=== PATIENT | male | born 1955 | race Caucasian/White ===

== ENCOUNTER 2017-01-07 11:19 | Inpatient (IN) | payer OTHER ==
[~2017-01-07] VITALS: Ht 175.3 cm; Wt 94.3 kg
[2017-01-07 13:44] LABS: EOSINOPHIL (%) 0.3 % (0-5); HEMATOCRIT 43.2 % (38.0-50.0); IMMATURE GRANULOCYTE (%) 0.3 % (0.0-0.7); IMMATURE GRANULOCYTE COUNT 0.2 K/uL; LYMPHOCYTE COUNT 0.4 K/uL (1.0-2.8); MCH 30.5 PG (29.0-34.0); MCHC 32.2 G/DL (30.0-36.0); MCV 94.9 FL (86-99); MEAN PLAT.VOLUME 10.4 uM^3 (9.0-12.4); MONOCYTE (%) 11.3 % (3-12); MONOCYTE COUNT 0.8 K/uL (0-0.8); NEUTROPHIL (%) 82.4 % (45-76); NEUTROPHIL COUNT 6.1 K/uL (1.8-6.4); PLATELET COUNT 149 K/uL (156-360); RBC DIS.WIDTH-CV 13.1 % (11.8-14.6); RBC DIS.WIDTH-SD 43.7 % (39-53); RED BLOOD COUNT 4.55 M/uL (4.00-5.50); WHITE BLOOD COUNT 7.3 K/uL (4.1-10.2)
[2017-01-07 13:53] LABS: CHLORIDE 99 mEq/L (99-109); POTASSIUM 5.9 mEq/L (3.7-5.4); SODIUM 138 mEq/L (136-147)
[2017-01-07 13:55] LABS: GLUCOSE 296 mg/dL (70-99)
[2017-01-07 13:56] LABS: ANION GAP 11 MEQ/L (2-14)
[2017-01-07 13:57] LABS: TOTAL BILIRUBIN 0.9 mg/dL (0.0-1.0)
[2017-01-07 13:58] LABS: SERUM ETHYL ALCOHOL < 10 mg/dL
[2017-01-07 13:59] LABS: ALKALINE PHOSPHATASE 109 IU/L (3-129); GFR ESTIMATE (CALCULATED) 47 mL/min/
[2017-01-07 14:01] LABS: UREA NITROGEN (BUN) 20 mg/dL (9-23)
[2017-01-07 14:02] LABS: SALICYLATE < 5.0 MG/DL (15-30)
[2017-01-07 17:19] LABS: ADD MEDTOX COMMENT Y; AMPHETAMINE NEGATIVE (500 ng/mL); BARBITURATES NEGATIVE (200 ng/mL); BENZODIAZEPINES PRESUMPTIVE POSITIVE (150 ng/mL); COCAINE NEGATIVE (150 ng/mL); INTERNAL CONTROLS VALID? YES; METHADONE NEGATIVE (200 ng/mL); METHAMPHETAMINE NEGATIVE (500 ng/mL); OPIATES (MORPHINE) NEGATIVE (100 ng/mL); OXYCODONE PRESUMPTIVE POSITIVE (100 ng/mL); PHENCYCLIDINE NEGATIVE (25 ng/mL); PROPOXYPHENE NEGATIVE (300 ng/mL); THC CANNABINOIDS NEGATIVE (50 ng/mL); TRICYCLIC ANTIDEPRESSANTS PRESUMPTIVE POSITIVE (300 ng/mL)
[2017-01-07 17:54] LABS: CHLORIDE 99 mEq/L (99-109)
[2017-01-07 17:55] LABS: POTASSIUM 5.1 mEq/L (3.7-5.4); SODIUM 140 mEq/L (136-147)
[2017-01-07 17:56] LABS: GLUCOSE 295 mg/dL (70-99)
[2017-01-07 17:58] LABS: ANION GAP 12 MEQ/L (2-14)
[2017-01-07 18:00] LABS: GFR ESTIMATE (CALCULATED) 47 mL/min/
[2017-01-07 18:01] LABS: UREA NITROGEN (BUN) 22 mg/dL (9-23)
[2017-01-07 18:03] LABS: TROP-I INTERPRETATION NEGATIVE
[2017-01-07 18:07] LABS: BENZODIAZEPINES, URINE SCREEN POSITIVE (200 ng/mL)
[2017-01-07 19:00] LABS: BASE EXCESS 1.2 mEq/L (-3 to +3); CARBOXY HGB 4.1 % (0-5); COMMENTS - BLOOD GASES C+A+; METHEMOGLOBIN 1.1 % (0-1.5); PCO2 74 mm Hg (35-45); PO2 101 mm Hg (80-100); SITE RR
[2017-01-07 19:01] LABS: DEVICE NEBULIZER; O2 FLOW 6 L/MIN; TOTAL RESP RATE 16 resp/min; pH 7.23 (7.35-7.45)
[2017-01-07 20:26] LABS: BASE EXCESS -1.4 mEq/L (-3 to +3); BICARBONATE 26.9 mEq/L (22-26); CARBOXY HGB 3.9 % (0-5); METHEMOGLOBIN 0.9 % (0-1.5); PO2 85 mm Hg (80-100)
[2017-01-07 20:29] LABS: COMMENTS - BLOOD GASES C+A+; DEVICE NIV; FI02 30 %; MODE SPONT; PCO2 60 mm Hg (35-45); SITE RR
[2017-01-07 20:30] LABS: PEEP 5 CM/H20; PRES. SUPPORT 12 CM/H2O; TOTAL RESP RATE 22 resp/min
[2017-01-07 20:31] LABS: pH 7.26 (7.35-7.45)
[2017-01-07 21:18] LABS: POINT-OF-CARE METER ID UU13113702
[2017-01-07 22:03] LABS: BASE EXCESS -2.1 mEq/L (-3 to +3); BICARBONATE 26.3 mEq/L (22-26); CARBOXY HGB 3.5 % (0-5); PCO2 60 mm Hg (35-45); PO2 71 mm Hg (80-100)
[2017-01-07 22:04] LABS: COMMENTS - BLOOD GASES A+C+; DEVICE 840 NIV MASK VENT; FI02 30 %; MECHANICAL RATE 10 resp/min; MODE SIMV; PEEP 5 CM/H20; PRES. SUPPORT 16 CM/H2O; SITE RR; TIDAL VOLUME 500 ML; TOTAL RESP RATE 28 resp/min
[2017-01-07 22:05] LABS: pH 7.25 (7.35-7.45)
[2017-01-08] VITALS (20 sets, daily range): BP systolic 103–141; BP diastolic 28–79
[2017-01-08] MEDS ORDERED: ALPRAZOLAM1 MG PO (00:46)
[2017-01-08] MEDS ORDERED: OXYCODONE HCL10 MG PO (00:47)
[2017-01-08] MEDS ORDERED: RELAFEN750 MG PO (00:49)
[2017-01-08] MEDS ORDERED: OMEPRAZOLE40 M1 PO (00:50)
[2017-01-08] MEDS ORDERED: METFORMIN HCL500 M4 PO (00:51)
[2017-01-08] MEDS ORDERED: PROAIR HFA8.5 GM IH (00:52)
[2017-01-08] MEDS ORDERED: LISINOPRIL-HCT1 EACH PO (00:53)
[2017-01-08 02:24] LABS: METH RESISTANT S AUREUS PCR NEGATIVE (NEGATIVE)
[2017-01-08 02:25] LABS: PROBE CHECK PASS; SPECIMEN PROCESSING CONTROL PASS
[2017-01-08 05:35] LABS: HEMATOCRIT 38.1 % (38.0-50.0); MCH 30.6 PG (29.0-34.0); MCV 95.5 FL (86-99); MEAN PLAT.VOLUME 11.5 uM^3 (9.0-12.4); PLATELET COUNT 138 K/uL (156-360); RBC DIS.WIDTH-CV 13.1 % (11.8-14.6); RBC DIS.WIDTH-SD 45.9 % (39-53); RED BLOOD COUNT 3.99 M/uL (4.00-5.50); WHITE BLOOD COUNT 5.5 K/uL (4.1-10.2)
[2017-01-08 05:57] LABS: ANION GAP 10 MEQ/L (2-14); CHLORIDE 99 MEQ/L (99-109); GFR ESTIMATE (CALCULATED) > 59 mL/min/; GLUCOSE 314 mg/dL (70-99); POTASSIUM 4.8 MEQ/L (3.7-5.4); SAMPLE HEMOLYSIS CHECK 0; SAMPLE ICTERIC CHECK 0; SAMPLE LIPEMIA CHECK 0; SODIUM 137 MEQ/L (136-147); UREA NITROGEN (BUN) 23 mg/dL (9-23)
[2017-01-08 11:32] LABS: MAGNESIUM 1.7 mg/dl (1.3-2.7)
[2017-01-08 11:37] LABS: POINT-OF-CARE METER ID UU14174217
[2017-01-08] MEDS ORDERED: DURAGESIC75 MCG TD (12:56)
[2017-01-08] MEDS ORDERED: PRAVACHOL10 MG PO (12:57)
[2017-01-08] MEDS ORDERED: LANTUS 10100 UNITS/ SC (12:59)
[2017-01-08] MEDS ORDERED: NEURONTIN300 MG PO ×2 (13:00→13:13)
[2017-01-08] MEDS ORDERED: ELAVIL25 MG PO (13:01)
[2017-01-08] MEDS ORDERED: GLUCOTROL XL10 MG PO (13:02)
[2017-01-08] MEDS ORDERED: TRAZODONE HCL50 MG PO (13:02)
[2017-01-08] MEDS ORDERED: XANAX1 MG PO (13:15)
[2017-01-08 17:37] LABS: POINT-OF-CARE METER ID UU14174217
[2017-01-08 22:18] LABS: POINT-OF-CARE METER ID UU14174217; POINT-OF-CARE USER ID RADDRS44
[2017-01-09] VITALS (19 sets, daily range): BP systolic 125–176; BP diastolic 55–99
[2017-01-09 05:59] LABS: HEMATOCRIT 38.2 % (38.0-50.0); MCHC 30.6 G/DL (30.0-36.0); MCV 94.6 FL (86-99); RBC DIS.WIDTH-CV 13.4 % (11.8-14.6); RBC DIS.WIDTH-SD 46.4 % (39-53); RED BLOOD COUNT 4.04 M/uL (4.00-5.50); WHITE BLOOD COUNT 7.1 K/uL (4.1-10.2)
[2017-01-09 06:14] LABS: ANION GAP 8 MEQ/L (2-14); CHLORIDE 103 MEQ/L (99-109); GFR ESTIMATE (CALCULATED) > 59 mL/min/; GLUCOSE 239 mg/dL (70-99); MAGNESIUM 1.9 mg/dl (1.3-2.7); POTASSIUM 4.5 MEQ/L (3.7-5.4); SAMPLE HEMOLYSIS CHECK 0; SAMPLE ICTERIC CHECK 0; SAMPLE LIPEMIA CHECK 0; SODIUM 138 MEQ/L (136-147); UREA NITROGEN (BUN) 23 mg/dL (9-23)
[2017-01-09 07:39] LABS: DELETE MACHINE DIFF? YES
[2017-01-09 07:43] LABS: ABS NEUTROPHIL COUNT 6.11; ANISOCYTOSIS 1+; HYPOCHROMASIA 1+; MICROCYTOSIS OCC; USER ID TLW
[2017-01-09 07:56] LABS: PLATELET COUNT UNABLE TO REPORT K/uL (156-360)
[2017-01-09 12:18] LABS: POINT-OF-CARE METER ID UU13113803
[2017-01-09 16:26] LABS: POINT-OF-CARE METER ID UU13113803
[2017-01-09 23:01] LABS: POINT-OF-CARE USER ID RADDRS44
[2017-01-10] VITALS (12 sets, daily range): BP systolic 148–186; BP diastolic 68–90
[2017-01-10 06:25] LABS: EOSINOPHIL (%) 0 % (0-5); HEMATOCRIT 37.6 % (38.0-50.0); IMMATURE GRANULOCYTE (%) 0.3 % (0.0-0.7); LYMPHOCYTE COUNT 0.8 K/uL (1.0-2.8); MCH 31.1 PG (29.0-34.0); MCHC 33.2 G/DL (30.0-36.0); MCV 93.5 FL (86-99); MEAN PLAT.VOLUME 11.1 uM^3 (9.0-12.4); MONOCYTE (%) 6.6 % (3-12); MONOCYTE COUNT 0.6 K/uL (0-0.8); NEUTROPHIL (%) 84.7 % (45-76); NEUTROPHIL COUNT 7.9 K/uL (1.8-6.4); RBC DIS.WIDTH-CV 13.2 % (11.8-14.6); RBC DIS.WIDTH-SD 44.7 % (39-53); RED BLOOD COUNT 4.02 M/uL (4.00-5.50)
[2017-01-10 06:26] LABS: PLATELET COUNT 184 K/uL (156-360); WHITE BLOOD COUNT 9.3 K/uL (4.1-10.2)
[2017-01-10 06:33] LABS: ANION GAP 7 MEQ/L (2-14); CHLORIDE 103 MEQ/L (99-109); GFR ESTIMATE (CALCULATED) > 59 mL/min/; GLUCOSE 204 mg/dL (70-99); POTASSIUM 4.2 MEQ/L (3.7-5.4); SAMPLE HEMOLYSIS CHECK 0; SAMPLE ICTERIC CHECK 0; SAMPLE LIPEMIA CHECK 0; SODIUM 139 MEQ/L (136-147); UREA NITROGEN (BUN) 22 mg/dL (9-23)
[2017-01-11 03:56] VITALS: BP 127/70
[2017-01-11 06:16] LABS: EOSINOPHIL (%) 0.1 % (0-5); HEMATOCRIT 41.7 % (38.0-50.0); IMMATURE GRANULOCYTE (%) 0.2 % (0.0-0.7); LYMPHOCYTE COUNT 1.1 K/uL (1.0-2.8); MCH 31.2 PG (29.0-34.0); MCHC 34.3 G/DL (30.0-36.0); MCV 90.8 FL (86-99); MEAN PLAT.VOLUME 10.7 uM^3 (9.0-12.4); MONOCYTE (%) 9.6 % (3-12); MONOCYTE COUNT 0.8 K/uL (0-0.8); NEUTROPHIL (%) 76.9 % (45-76); NEUTROPHIL COUNT 6.6 K/uL (1.8-6.4); PLATELET COUNT 203 K/uL (156-360); RBC DIS.WIDTH-CV 12.9 % (11.8-14.6); RBC DIS.WIDTH-SD 42.7 % (39-53); RED BLOOD COUNT 4.59 M/uL (4.00-5.50); WHITE BLOOD COUNT 8.6 K/uL (4.1-10.2)
[2017-01-11 06:53] LABS: ANION GAP 9 MEQ/L (2-14); CHLORIDE 100 MEQ/L (99-109); GFR ESTIMATE (CALCULATED) > 59 mL/min/; MAGNESIUM 1.9 mg/dl (1.3-2.7); SAMPLE HEMOLYSIS CHECK 0; SAMPLE ICTERIC CHECK 0; SAMPLE LIPEMIA CHECK 0; SODIUM 142 MEQ/L (136-147); UREA NITROGEN (BUN) 18 mg/dL (9-23)
[2017-01-11 06:55] LABS: GLUCOSE 105 mg/dL (70-99); POTASSIUM 3.3 MEQ/L (3.7-5.4)
[2017-01-11 07:36] LABS: POINT-OF-CARE METER ID UU14188577
[2017-01-11 08:03] VITALS: BP 161/81
[2017-01-11] MEDS ORDERED: AUGMENTIN875 MG PO (10:17)
[2017-01-11] MEDS ORDERED: PRAVACHOL10 MG PO (10:17)
[2017-01-11] MEDS ORDERED: PREDNISONE20 MG PO (10:17)
[2017-01-11] MEDS ORDERED: GABAPENTIN300 MG PO (10:17)
[2017-01-11] MEDS ORDERED: OXYCODONE HCL5 MG PO (10:18)
[2017-01-11 12:14] LABS: POINT-OF-CARE METER ID UU14188577
== END 2017-01-11 12:45 | disposition home or self-care (01) | DRG 917 ==
LOC: EME → EDBD 11:19 → EME 11:19 → 4WEST 22:13 → 3EAST 22:13 → EDOF 22:13 → 4WEST 01-08 00:26 → 3EAST 01-10 11:11
PROVIDERS: Emergency Medicine; Hospitalist; Internal Medicine Critical Care Medicine; Internal Medicine Nephrology
PROC: 5A09357 Assistance with Respiratory Ventilation, Less than 24 Consecutive Hours, Continuous Positive Airway Pressure (ICD-10-PCS; principal; 2017-01-07)
DX: T40.4X1A Poisoning by other synthetic narcotics, accidental (unintentional), initial encounter (principal); T40.2X1A Poisoning by other opioids, accidental (unintentional), initial encounter; J96.01 Acute respiratory failure with hypoxia; J96.02 Acute respiratory failure with hypercapnia; J69.0 Pneumonitis due to inhalation of food and vomit; N17.9 Acute kidney failure, unspecified; J44.1 Chronic obstructive pulmonary disease with (acute) exacerbation; G93.41 Metabolic encephalopathy; E87.2 Acidosis; E87.5 Hyperkalemia; E86.0 Dehydration; E83.39 Other disorders of phosphorus metabolism; G89.4 Chronic pain syndrome; E11.65 Type 2 diabetes mellitus with hyperglycemia; I10 Essential (primary) hypertension; K21.9 Gastro-esophageal reflux disease without esophagitis; F43.20 Adjustment disorder, unspecified; F32.9 Major depressive disorder, single episode, unspecified; F17.210 Nicotine dependence, cigarettes, uncomplicated; E66.9 Obesity, unspecified; Z68.30 Body mass index [BMI] 30.0-30.9, adult
CPT/HCPCS: 36600; 70450; 71020; 80048; 80048 91; 80053; 80202; 82803; 82948; 83735; 83880; 84100; 84484; 84999; 85025; 85027; 87040; 87641; 93005; 94002; 94640; 94640 76; 94644; 94799; 99202; 99281; 99285; G0480; J1650; J1815; J2310; J2405; J2543; J2920; J2930; J3370; J7030; J7050; J7512; J7644; S0028